=== PATIENT | female | born 1985 | race African-American/Black ===

== ENCOUNTER 2016-08-10 11:45 | Inpatient (IN) | payer OTHER ==
[~2016-08-10 11:45] MED LIST: CITRIC ACID/SODIUM CITRATE 30 ML UNIT-DOSE CUP PO ONE; ELECTROLYTE-148 SOLN 1,000 ML IV SCH
[2016-08-10] MEDS ORDERED: ELECTROLYTE-148 SOLN 1,000 ML IV SCH (12:15)
[2016-08-10] MEDS ORDERED: morphine SULFATE/Preservative Free 0.5 MG/ML (1cc Syringe) EP ONE (12:17)
[2016-08-10] MEDS ORDERED: ONDANSETRON 4 MG/2 ML VIAL IVPB PRN (12:17)
[2016-08-10] MEDS ORDERED: IBUPROFEN 800 MG/8 ML IJ IVPB PRN ×2 (12:18→12:59)
[2016-08-10 12:50] LABS: BASOPHIL 0.4 % (0-2.0); EOSINOPHIL 0.9 % (0-4.5); MCH 26.2 pg (25.7-33.7); MCHC 33.2 g/dl (32.0-36.0); MEAN PLT VOLUME 8.5 fl (7.5-11.1); NEUTROPHILS 84.7 % (42.8-82.8); PLATELET COUNT 235 K/MM3 (134-434); RDW 15.1 % (11.6-15.6); WHITE BLOOD COUNT 13.3 K/mm3 (4.0-10.0)
[2016-08-10] MEDS ORDERED: IBUPROFEN 600 MG TABLET (FP) PO PRN (12:59)
[2016-08-10] MEDS ORDERED: BENZOCAINE 20% 57 GM BOTTLE TP PRN (12:59)
[2016-08-10] MEDS ORDERED: WITCH HAZEL 50% (TUCKS) 40 PAD/JAR PAD TP PRN (12:59)
[2016-08-10] MEDS ORDERED: METHYLERGONOVINE MALEATE 0.2 MG/1 ML AMP IM PRN (12:59)
[2016-08-10] MEDS ORDERED: oxyCODONE HCL 5 MG TABLET PO PRN ×2 (12:59)
[2016-08-10] MEDS ORDERED: diphenhydrAMINE HCL 25 MG CAPSULE (FP) PO PRN (12:59)
[2016-08-10] MEDS ORDERED: BENZOCAINE 28 GM HEMORRHOIDAL OINTMENT PR PRN (12:59)
[2016-08-10] MEDS ORDERED: OXYTOCIN 20 UNITS in 0.9% NS 1,000 ML IV SCH (13:00)
[2016-08-10 13:09] LABS: ARTERIAL BLD GAS O2 SATURATION 33.3 % (90-98.9); ARTERIAL BLOOD GAS BASE EXCESS 0.1 meq/l (-2-2); ARTERIAL BLOOD GAS HCO3 26.9 meq/L (22-26); ARTERIAL BLOOD GAS pH 7.31 (7.35-7.45)
[2016-08-10 13:12] LABS: ARTERIAL BLOOD GAS BASE EXCESS 0.2 meq/l (-2-2); ARTERIAL BLOOD GAS HCO3 24.6 meq/L (22-26); ARTERIAL BLOOD GAS pH 7.39 (7.35-7.45)
[2016-08-10 13:16] LABS: INR 1.01 (0.82-1.09); PROTHROMBIN TIME (PATIENT) 11.1 SEC (9.98-11.88)
[2016-08-10 13:16] LABS: LPM/O2% 21%; PT. ON O2? NO; TYPE OF O2 ROOM AIR
[2016-08-10 13:17] LABS: ARTERIAL BLOOD GAS PO2 19.8 mmHg (80-100)
[2016-08-10 13:17] LABS: ARTERIAL BLOOD GAS PO2 40.3 mmHg (80-100); LPM/O2% 21%; PT. ON O2? NO; TYPE OF O2 ROOM AIR
[2016-08-10 13:19] LABS: ACTIVATED PTT 29.8 SECONDS (26.9-34.4)
[2016-08-10 13:48] VITALS: BMI 33.9
[2016-08-10] MEDS: CEFAZOLIN (PRE-DOCKED) 50 ML IVPB SCH (18:17)
[2016-08-10 18:37] LABS: ANION GAP 10 (8-16); CALCIUM 8.5 mg/dL (8.5-10.1); CO2 26 mmol/L (21-32); CREATININE 0.4 mg/dL (0.55-1.02); GLUCOSE,RANDOM 66 mg/dL (74-106)
[2016-08-11] MEDS: CEFAZOLIN (PRE-DOCKED) 50 ML IVPB SCH (01:51)
--- NOTE | 2016-08-11 04:32 | HP ---
Past Medical History - Primary Care Physician PCP:: Momo Nieves - Admission Chief Complaint: 38 weeks, previous c/s, labor, non reassuring fhr History of Present Illness: 08/10/16 31 yo f with one previous c/s c/o of pain since 4 am, no rom , no bleeding, fhr spont decelration, admitted forrepeat c/s for non reassuring hear, cx 1 cm 50 vx -3 mi History Source: Patient Limitations to Obtaining History: No Limitations - Past Medical History Pulmonary: Yes: Asthma ...: 2 ...Para: 1 ...Term: 1 ...: 0 ...Spon : 0 ...Induced : 0 ...Multiple Gestation: 0 ...LMP: 11/20/15 ... Weeks Gestation by Dates: 37.5 ...EDC by Dates: 08/26/16 ...EDC by Sono: 08/25/16 - Past Surgical History Past Surgical History: Yes: None, Appendectomy, Hx Myomectomy: No Hx Transabdominal Cerclage: No - Smoking History Smoking history: Never smoked Have you smoked in the past 12 months: No Aproximately how many cigarettes per day: 0 - Alcohol/Substance Use Hx Alcohol Use: No - Social History Usual Living Arrangement: Yes: With Spouse History of Recent Travel: No Home Medications - Allergies Allergies/Adverse Reactions: Allergies Allergy/AdvReac Type Severity Reaction Status Date / Time pecan nut Allergy Severe Swelling Verified 08/10/16 13:51 walnut Allergy Severe Swelling Verified 08/10/16 13:50 No Known Drug Allergies Allergy Verified 08/10/16 13:50 - Home Medications Home Medications: Ambulatory Orders Pnv95/Ferrous Fumarate/FA [ Vitamin Tablet] 1 each PO DAILY 08/10/16 Physical Exam - Maternity Vital Signs: Vital Signs Temperature 99.0 F 08/11/16 02:00 Pulse Rate 81 08/11/16 02:00 Respiratory Rate 20 08/11/16 02:00 Blood Pressure 113/70 08/11/16 02:00 O2 Sat by Pulse Oximetry (%) 99 08/10/16 14:10 Constitutional: Yes: Well Nourished, No Distress, Calm Eyes: Yes: WNL, Conjunctiva Clear, EOM Intact HENT: Yes: WNL, Atraumatic, Normocephalic Neck: Yes: WNL, Supple, Trachea Midline Cardiovascular: Yes: WNL, Regular Rate and Rhythm Breast(s): Yes: WNL - Abdominal Exam/OB Fundal Height: 40 Number of Fetuses: Single Presentation: Vertex Contractions: Yes Regularity: Irregular Intensity: Strong Monitor Mode: External Heart Rate Location: [facility] Category: II Accelerations: Non-Uniform Decelerations: Prolonged - Vaginal Exam/OB Vaginal Bleediing: No Speculum Exam: No Dilatation (cm): 1 cm Effacement (%): 50 Amniotic Membrane Status: Intact Presentation: Vertex/Position Station: -3 - Physical Exam Musculoskeletal: Yes: WNL Extremities: Yes: WNL Edema: LLE: Trace, RLE: Trace Deep Tendon Reflex Grade: Normal +2 - Labs Lab Results: CBC, BMP 08/10/16 12:25 08/10/16 16:30 Hemorrhage Risk Assessment - Risk Factors Risk Score: 1 Risk Level: Medium Risk Problem List - Problems (1) with 38 completed weeks gestation Code(s): Z3A.38 - 38 WEEKS GESTATION OF (2) Previous delivery affecting , antepartum Code(s): O34.219 - MATERNAL CARE FOR UNSP TYPE SCAR FROM PREVIOUS DEL (3) Non-reassuring heart tones complicating , antepartum Code(s): O36.8990 - MATERNAL CARE FOR OTH PROBLEMS, UNSP TRIMESTER, UNSP Assessment/Plan plan admit for c/s, rba discussed
--- NOTE | 2016-08-11 05:16 | PN ---
Progress Note (short form) - Note Progress Note: pod 1 doing well, has mild cramps CBC, BMP 08/10/16 12:25 08/10/16 16:30 Last Vital Signs Temp Pulse Resp BP Pulse Ox 99.0 F 81 20 113/70 99 08/11/16 02:00 08/11/16 02:00 08/11/16 02:00 08/11/16 02:00 08/10/16 14:10 abdomen soft, no distension, no cva incision dry, no excess vaginal bleeding plan ambualte, cbc, advance diet Problem List - Problems (1) with 38 completed weeks gestation Code(s): Z3A.38 - 38 WEEKS GESTATION OF (2) Previous delivery affecting , antepartum Code(s): O34.219 - MATERNAL CARE FOR UNSP TYPE SCAR FROM PREVIOUS DEL (3) Non-reassuring heart tones complicating , antepartum Code(s): O36.8990 - MATERNAL CARE FOR OTH PROBLEMS, UNSP TRIMESTER, UNSP
[2016-08-11 06:57] LABS: BASOPHIL 0.5 % (0-2.0); EOSINOPHIL 2.4 % (0-4.5); MCH 26.2 pg (25.7-33.7); MCHC 33.4 g/dl (32.0-36.0); MEAN CELL VOLUME 78.6 fl (80-96); MEAN PLT VOLUME 8.3 fl (7.5-11.1); NEUTROPHILS 82.6 % (42.8-82.8); PLATELET COUNT 218 K/MM3 (134-434); RDW 15.1 % (11.6-15.6); WHITE BLOOD COUNT 12.1 K/mm3 (4.0-10.0)
[2016-08-11] MEDS: ENOXAPARIN NA (PORCINE) 40 MG/0.4 ML DISP.SYRIN SQ SCH (09:55)
--- NOTE | 2016-08-11 11:28 | PN ---
Progress Note (short form) - Note Progress Note: Anesthesia post op note: POD#1. S/P C/S, in spinal with duramorph. Pat seen and examined. VSS. Ambulating, pain controlled. No apparent post anesthesia complications.Signed off.
[2016-08-11] MEDS: SIMETHICONE 80 MG TAB.CHEW (FP) PO PRN ×2 (12:33→20:44)
[2016-08-11] MEDS: ACETAMINOPHEN 325 MG TABLET (FP) PO PRN ×2 (12:33→20:44)
[2016-08-11] MEDS: IBUPROFEN 600 MG TABLET (FP) PO PRN ×2 (12:34→20:45)
[2016-08-11] MEDS ORDERED: BISACODYL 10 MG SUPP.RECT RC PRN (13:00)
[2016-08-12] MEDS: SIMETHICONE 80 MG TAB.CHEW (FP) PO PRN ×4 (02:10→20:52)
[2016-08-12] MEDS: ACETAMINOPHEN 325 MG TABLET (FP) PO PRN ×4 (02:10→20:52)
[2016-08-12] MEDS: IBUPROFEN 600 MG TABLET (FP) PO PRN ×4 (02:11→20:52)
--- NOTE | 2016-08-12 07:48 | PN ---
Post Progress Note - Subjective Subjective: 31 yo Para 2, status post repeat , seen and evaluated. Doing well. Post Day: 2 Type of Delivery: Repeat C/S Vital Signs: Vital Signs Temperature 98.9 F 08/11/16 22:00 Pulse Rate 71 08/11/16 22:00 Respiratory Rate 20 08/11/16 22:00 Blood Pressure 119/99 08/11/16 22:00 O2 Sat by Pulse Oximetry (%) 99 08/10/16 14:10 Breast Exam: Yes: Soft Uterus: Yes: Fundus Firm Incision: Yes: Dressing dry and intact Abdomen/GI: Yes: Abdomen soft, Tolerating PO Lochia: Yes: Rubra Lochia, amount: Small Extremities: Yes: Calves non-tender Perineum: Yes: Intact Activity: Ambulating - Labs Labs: CBC WBC 12.1 K/mm3 (4.0-10.0) H 08/11/16 06:20 RBC 4.35 M/mm3 (3.60-5.2) 08/11/16 06:20 Hgb 11.4 GM/dL (10.7-15.3) 08/11/16 06:20 Hct 34.2 % (32.4-45.2) 08/11/16 06:20 MCV 78.6 fl (80-96) L 08/11/16 06:20 MCHC 33.4 g/dl (32.0-36.0) 08/11/16 06:20 RDW 15.1 % (11.6-15.6) 08/11/16 06:20 Plt Count 218 K/MM3 (134-434) 08/11/16 06:20 MPV 8.3 fl (7.5-11.1) 08/11/16 06:20 Neutrophils % 82.6 % (42.8-82.8) 08/11/16 06:20 Lymphocytes % 8.5 % (8-40) D 08/11/16 06:20 Monocytes % 6.0 % (3.8-10.2) D 08/11/16 06:20 Eosinophils % 2.4 % (0-4.5) D 08/11/16 06:20 Basophils % 0.5 % (0-2.0) 08/11/16 06:20 Problem List - Problems (1) Status post repeat low transverse section Code(s): Z98.891 - HISTORY OF UTERINE SCAR FROM PREVIOUS SURGERY Assessment/Plan Status post repeat Stable Continue routine Post op care
--- NOTE | 2016-08-12 07:50 | DS ---
Physical Exam-SENIOR ADMINISTRATIVE SUPPORT Vital Signs: Vital Signs Temperature 98.9 F 08/11/16 22:00 Pulse Rate 71 08/11/16 22:00 Respiratory Rate 20 08/11/16 22:00 Blood Pressure 119/99 08/11/16 22:00 O2 Sat by Pulse Oximetry (%) 99 08/10/16 14:10 Constitutional: Yes: Well Nourished Eyes: Yes: Conjunctiva Clear HENT: Yes: Atraumatic Neck: Yes: Supple, Trachea Midline Cardiovascular: Yes: Regular Rate and Rhythm Respiratory: Yes: Regular, CTA Bilaterally Gastrointestinal: Yes: Normal Bowel Sounds External Genitalia: Yes: Normal Vaginal Exam: Yes: Normal Cervix: Yes: Normal Breast(s): Yes: WNL Wound/Incision: Yes: Clean/Dry, Melissa Intact Neurological: Yes: Alert, Oriented ...Motor Strength: WNL Psychiatric: Yes: Alert, Oriented Labs: CBC, BMP 08/11/16 06:20 08/10/16 16:30 Delivery - Delivery Type of Anesthesia: Spinal Episiotomy/Laceration: None EBL (cc): 500 Delivery, Single - Stages of Labor Date 1st Stage Initiatied: 08/10/16 Time 1st Stage Initiated: 04:30 Date of Delivery: 08/10/16 Time of Delivery: 12:37 Time Placenta Delivered: 12:38 - Condition of Infant Cellular Tower Climber/Doctor Of Nursing Practice Present: Yes Name: Fredy Dhillon Infant Gender: Male Weight: 7 lb 3 oz Position: Right, OT Total Hours ROM (Hrs/Mins): 2MIN - 1 Minute Total Score: 9 5 Minutes Total Score: 9 - [place] Feeding Plan Initial Plan: Elected not to breastfeed exclusively throughout hospitalization Discharge Summary Reason For Visit: LABOR Current Active Problems Non-reassuring heart tones complicating , antepartum (Acute) with 38 completed weeks gestation (Acute) Previous delivery affecting , antepartum (Acute) Status post repeat low transverse section (Acute) Procedures: Principal: Repeat Low transverse Hospital Course: Routine Post op care - Instructions Diet, Activity, Other Instructions: Wound care No driving, no lifting x 4 weeks F/U in clinic for melissa removal in one week Disposition: HOME - Home Medications Comprehensive Discharge Medication List: Ambulatory Orders Pnv95/Ferrous Fumarate/FA [ Vitamin Tablet] 1 each PO DAILY 06/15/17
--- NOTE | 2016-08-12 09:20 | PN ---
Post Progress Note - Subjective Subjective: Patient without acute complaints. Reports tolerating oral intake without nausea or vomiting. Ambulating without dizziness. Denies fevers or chills. Pain well controlled with oral pain medication. without difficulty. Passing flatus. Post Day: 2 Type of Delivery: Repeat C/S Vital Signs: Vital Signs Temperature 98.4 F 08/12/16 08:09 Pulse Rate 74 08/12/16 08:09 Respiratory Rate 20 08/12/16 08:09 Blood Pressure 119/68 08/12/16 08:09 O2 Sat by Pulse Oximetry (%) 99 08/10/16 14:10 Uterus: Yes: Fundus Firm, Fundus below umbilicus Incision: Yes: Sutures intact Abdomen/GI: Yes: Abdomen soft, Tender (mild incisional), Passing flatus, Tolerating PO Lochia: Yes: Serosa Lochia, amount: Small Extremities: Yes: Calves non-tender, Edema (trace) Activity: Ambulating - Labs Labs: CBC WBC 12.1 K/mm3 (4.0-10.0) H 08/11/16 06:20 RBC 4.35 M/mm3 (3.60-5.2) 08/11/16 06:20 Hgb 11.4 GM/dL (10.7-15.3) 08/11/16 06:20 Hct 34.2 % (32.4-45.2) 08/11/16 06:20 MCV 78.6 fl (80-96) L 08/11/16 06:20 MCHC 33.4 g/dl (32.0-36.0) 08/11/16 06:20 RDW 15.1 % (11.6-15.6) 08/11/16 06:20 Plt Count 218 K/MM3 (134-434) 08/11/16 06:20 MPV 8.3 fl (7.5-11.1) 08/11/16 06:20 Neutrophils % 82.6 % (42.8-82.8) 08/11/16 06:20 Lymphocytes % 8.5 % (8-40) D 08/11/16 06:20 Monocytes % 6.0 % (3.8-10.2) D 08/11/16 06:20 Eosinophils % 2.4 % (0-4.5) D 08/11/16 06:20 Basophils % 0.5 % (0-2.0) 08/11/16 06:20 Assessment/Plan 31 yo POD #2 s/p CD, afebrile, vital signs stable, doing well 1. Continue routine postoperative care. 2. Encourage ambulation and incentive spirometer use 3. Continue oral pain medication 4. Patient states desires circumcision for infant. Discussed risks including infection, bleeding, damage to tip of penis, and unsatisfactory result, resulting in surgical repair or repeat circumcision. Patient expressed understanding and consents to procedure. Reviewed infants chart, normal genitalia per case checker, Dr. Ceja 5. Anticipate discharge home postoperative day #3 or #4
[2016-08-12] MEDS: ENOXAPARIN NA (PORCINE) 40 MG/0.4 ML DISP.SYRIN SQ SCH (10:14)
[2016-08-12] MEDS: DEXTROSE 5%-LACTATED RINGERS 1,000 ML IV SCH ×2 (19:35→19:36)
[2016-08-12] MEDS ORDERED: SENNOSIDES/DOCUSATE COMBO (SENNA PLUS) TABLET (UD) PO PRN (22:00)
[2016-08-13] MEDS: IBUPROFEN 600 MG TABLET (FP) PO PRN ×5 (01:26→22:14)
[2016-08-13] MEDS: ACETAMINOPHEN 325 MG TABLET (FP) PO PRN ×5 (01:26→22:13)
[2016-08-13] MEDS: SIMETHICONE 80 MG TAB.CHEW (FP) PO PRN ×5 (01:26→22:13)
--- NOTE | 2016-08-13 08:27 | PN ---
Post Progress Note - Subjective Subjective: Patient without acute complaints. Reports tolerating oral intake without nausea or vomiting. Ambulating without dizziness. Denies fevers or chills. Pain well controlled with oral pain medication. Breast and bottlefeeding without difficulty. Passing flatus. Post Day: 3 Type of Delivery: Repeat C/S Vital Signs: Vital Signs Temperature 98.3 F 08/12/16 22:00 Pulse Rate 74 08/12/16 22:00 Respiratory Rate 18 08/12/16 22:00 Blood Pressure 130/77 08/12/16 22:00 O2 Sat by Pulse Oximetry (%) 99 08/10/16 14:10 Breast Exam: Yes: Soft Uterus: Yes: Fundus Firm, Fundus below umbilicus Incision: Yes: Sutures intact. No: Redness, Oozing Abdomen/GI: Yes: Abdomen soft, Tender (incisional), Passing flatus, Tolerating PO. No: Abdominal Distention Lochia: Yes: Serosa Lochia, amount: Small Extremities: Yes: Calves non-tender, Edema (trace) Activity: Ambulating - Labs Labs: CBC WBC 12.1 K/mm3 (4.0-10.0) H 08/11/16 06:20 RBC 4.35 M/mm3 (3.60-5.2) 08/11/16 06:20 Hgb 11.4 GM/dL (10.7-15.3) 08/11/16 06:20 Hct 34.2 % (32.4-45.2) 08/11/16 06:20 MCV 78.6 fl (80-96) L 08/11/16 06:20 MCHC 33.4 g/dl (32.0-36.0) 08/11/16 06:20 RDW 15.1 % (11.6-15.6) 08/11/16 06:20 Plt Count 218 K/MM3 (134-434) 08/11/16 06:20 MPV 8.3 fl (7.5-11.1) 08/11/16 06:20 Neutrophils % 82.6 % (42.8-82.8) 08/11/16 06:20 Lymphocytes % 8.5 % (8-40) D 08/11/16 06:20 Monocytes % 6.0 % (3.8-10.2) D 08/11/16 06:20 Eosinophils % 2.4 % (0-4.5) D 08/11/16 06:20 Basophils % 0.5 % (0-2.0) 08/11/16 06:20 Assessment/Plan 31 yo POD #3 s/p CD, afebrile, vital signs stable, doing well 1. Continue routine postoperative care. 2. Encourage ambulation and incentive spirometer use 3. Continue oral pain medication 4. Patient states desires circumcision for . Discussed risks including infection, bleeding, damage to tip of penis, and unsatisfactory result, resulting in surgical repair or repeat circumcision. Patient expressed understanding and consents to procedure. Written consent obtained. Reviewed infants chart, normal genitalia per box sealing machine operator, Dr. Ceja 5. Patient desires discharge home POD #4
[2016-08-13 08:35] LABS: BASOPHIL 0.4 % (0-2.0); EOSINOPHIL 5.1 % (0-4.5); MCH 26.8 pg (25.7-33.7); MEAN CELL VOLUME 78.7 fl (80-96); MEAN PLT VOLUME 8.3 fl (7.5-11.1); NEUTROPHILS 75.7 % (42.8-82.8); PLATELET COUNT 218 K/MM3 (134-434); RDW 15.1 % (11.6-15.6); WHITE BLOOD COUNT 11.9 K/mm3 (4.0-10.0)
[2016-08-13] MEDS: ENOXAPARIN NA (PORCINE) 40 MG/0.4 ML DISP.SYRIN SQ SCH (09:52)
[2016-08-14] MEDS: IBUPROFEN 600 MG TABLET (FP) PO PRN ×3 (02:52→14:23)
[2016-08-14] MEDS: ACETAMINOPHEN 325 MG TABLET (FP) PO PRN ×3 (02:52→14:21)
[2016-08-14] MEDS: SIMETHICONE 80 MG TAB.CHEW (FP) PO PRN ×3 (02:55→14:20)
--- NOTE | 2016-08-14 09:33 | PN ---
Post Progress Note - Subjective Subjective: Patient without acute complaints. Reports tolerating oral intake without nausea or vomiting. Ambulating without dizziness. Denies fevers or chills. Pain well controlled with oral pain medication. without difficulty. Passing flatus. Post Day: 4 Type of Delivery: Repeat C/S Vital Signs: Vital Signs Temperature 98.0 F 08/13/16 21:34 Pulse Rate 67 08/13/16 21:34 Respiratory Rate 18 08/13/16 21:34 Blood Pressure 134/79 08/13/16 21:34 O2 Sat by Pulse Oximetry (%) 99 08/10/16 14:10 Breast Exam: Yes: Engorged Uterus: Yes: Fundus Firm, Fundus below umbilicus Incision: Yes: Sutures intact. No: Redness, Oozing Abdomen/GI: Yes: Abdomen soft, Tender (incisional ), Passing flatus, Tolerating PO Lochia: Yes: Serosa Lochia, amount: Small Extremities: Yes: Calves non-tender, Edema (trace) Activity: Ambulating - Labs Labs: CBC WBC 11.9 K/mm3 (4.0-10.0) H 08/13/16 07:25 RBC 4.29 M/mm3 (3.60-5.2) 08/13/16 07:25 Hgb 11.5 GM/dL (10.7-15.3) 08/13/16 07:25 Hct 33.7 % (32.4-45.2) 08/13/16 07:25 MCV 78.7 fl (80-96) L 08/13/16 07:25 MCHC 34.0 g/dl (32.0-36.0) 08/13/16 07:25 RDW 15.1 % (11.6-15.6) 08/13/16 07:25 Plt Count 218 K/MM3 (134-434) 08/13/16 07:25 MPV 8.3 fl (7.5-11.1) 08/13/16 07:25 Neutrophils % 75.7 % (42.8-82.8) 08/13/16 07:25 Lymphocytes % 14.7 % (8-40) D 08/13/16 07:25 Monocytes % 4.1 % (3.8-10.2) 06/18/17 07:25 Eosinophils % 5.1 % (0-4.5) H D 08/13/16 07:25 Basophils % 0.4 % (0-2.0) 08/13/16 07:25 Assessment/Plan 31 yo POD #4 s/p CD, afebrile, vital signs stable, doing well 1. Patient stable for discharge home today. 2. Patient encouraged to contact MD for: - Severe pain not controlled by oral pain medication - Fevers or chills - Nausea or vomiting, intolerance of oral intake - Incision redness, tenderness or discharge 3. Patient to follow up in office in 1-2 weeks for incision check, 4-6 weeks for visit
--- NOTE | 2016-08-14 09:47 | DS ---
Physical Exam-DISPOSAL WORKER Vital Signs: Vital Signs Temperature 98.0 F 08/13/16 21:34 Pulse Rate 67 08/13/16 21:34 Respiratory Rate 18 08/13/16 21:34 Blood Pressure 134/79 08/13/16 21:34 O2 Sat by Pulse Oximetry (%) 99 08/10/16 14:10 Labs: CBC, BMP 08/13/16 07:25 08/10/16 16:30 Delivery - Delivery Type of Anesthesia: Spinal Episiotomy/Laceration: None EBL (cc): 500 Delivery, Single - Stages of Labor Date 1st Stage Initiatied: 08/10/16 Time 1st Stage Initiated: 04:30 Date of Delivery: 08/10/16 Time of Delivery: 12:37 Time Placenta Delivered: 12:38 - Condition of Cartridge Assembler/Winder Operator Present: Yes Name: Fredy Dhillon Gender: Male Weight: 7 lb 3 oz Position: Right, OT Total Hours ROM (Hrs/Mins): 2MIN - 1 Minute Total Score: 9 5 Minutes Total Score: 9 - [place] Feeding Plan Initial Plan: Elected not to breastfeed exclusively throughout hospitalization Discharge Summary Reason For Visit: LABOR Current Active Problems Non-reassuring heart tones complicating , antepartum (Acute) with 38 completed weeks gestation (Acute) Previous delivery affecting , antepartum (Acute) Status post repeat low transverse section (Acute) Procedures: Principal: delivery Hospital Course: patient remained afebrile, vital signs stable, doing well for discharge home POD #4 [facility] Reference #: [id number] Condition: Good - Instructions Diet, Activity, Other Instructions: Physical activity Resume your normal everyday activity as tolerated no heavy lifting or exercise until seen by your surgeon. You may walk unlimited jerardo of and climb stairs. You may resume driving the car when you feel safe and comfortable behind the wheel. No sexual activity as instructed. Wound care If you have a bandage, leave it on, and keep dry for 48-72 hours. After that time discard the outer bandage. If they are tapes on the skin under the out of bandage leave them in place. They will peel off in the next 7 to 10 days. Do Not Peel them off. You may shower the day after surgery. If there are tapes present on the skin, you may shower over them. Diet There are no dietary restrictions. Eat healthy, high-fiber foods. Drink 6 to 8 glasses of liquid each day. This will assist in keeping your bowels are regular. Pain management You may take Tylenol or acetaminophen or Ibuprofen (for example, Motrin, Advil etc.) from my pain prescription medication is ordered should be taken as prescribed for moderate to severe pain. Call MD for any of the following: Severe pain not relieved by medication Fever of 101 or higher Excessive bleeding or drainage on dressing Inability to urinate Referrals: Momo Nieves MD [Staff Physician] - Disposition: HOME - Home Medications Comprehensive Discharge Medication List: Ambulatory Orders Pnv95/Ferrous Fumarate/FA [ Vitamin Tablet] 1 each PO DAILY 08/10/16 Ibuprofen [Motrin -] 600 mg PO QID #60 tablet 08/14/16 Oxycodone HCl/Acetaminophen [Percocet 5-325 mg Tablet -] 1 - 2 tab PO Q6H #20 tab MDD 6 08/14/16
[2016-08-14] MEDS: ENOXAPARIN NA (PORCINE) 40 MG/0.4 ML DISP.SYRIN SQ SCH (10:20)
[2016-08-14 10:21] VITALS: BP 116/68; PULSE 64; TEMP 98.6
--- NOTE | 2016-08-15 14:44 | PATH ---
Surgical Pathology Report Patient Name: THOMPSON JIMENEZ [facility]. Rec. #: [id number] /Age/Gender: 1985 (Age: 31) / F Account: [id number] Location: [facility] OBS/OBSTETRICAL ANESTHESIOLOGIST Taken: 08/10/2016 Received: 08/11/2016 Reported: 08/15/2016 Physicians: Momo Nieves M.D. Specimen(s) Received PLACENTA Clinical History , 37.6 weeks, previous with nonreassuring heart rate Sickle cell trait, father of baby negative Right dermoid cyst, migraines Final Diagnosis PLACENTA, DELIVERY: SMALL (396 GRAM) THIRD TRIMESTER PLACENTA WITH 3 VESSEL UMBILICAL CORD AND UNREMARKABLE PLACENTAL MEMBRANES. Electronically Signed Chon Beckford M.D. Gross Description The specimen is received fresh labeled placenta and is a 396 gram, 14.2 x 13.5 x 3.3 cm. placenta with attached membranes and umbilical cord. The attached membranes are olvera, translucent with focal past opacities and insert marginally. The umbilical cord measures 19 cm. in length and averages 1 cm. in diameter. The cord inserts eccentrically, 3.5 cm. to the nearest margin. No true knots or strictures are identified. Cut surface of the umbilical cord reveals 3 vessels. The surface is benítez-blue with minimal fibrin deposition and appropriate caliber vessels. The maternal surface is red-brown and intact. Sectioning reveals red-brown, spongy parenchyma. No lesions are identified. Industrial Health Engineer sections are submitted in three cassettes as follows: 1- membrane rolls and umbilical cord; 2-3- full thickness sections of placenta. [facility]
--- NOTE | 2016-09-16 07:46 | OP ---
DATE OF OPERATION: 08/11/2016 PREOPERATIVE DIAGNOSIS: at 38 weeks, previous section, labor, nonreassuring heart rate. POSTOPERATIVE DIAGNOSIS: at 38 weeks, previous section, labor, nonreassuring heart rate. PROCEDURE: Repeat low-segment transverse section. SURGEON: Antionette Nieves MD ANESTHESIA: Spinal. ESTIMATED BLOOD LOSS: 500 mL DESCRIPTION OF OPERATION: Patient was taken to the operating room. Under adequate spinal anesthesia, abdomen and perineum were prepped and draped. Pfannenstiel abdominal skin incision was made over the previous incision. Abdominal wall was cut layer by layer until peritoneum was exposed and incised. Upon entering the abdominal cavity, lower uterine segment was identified and uterovesical fold of peritoneum established. Bladder was pushed down. Then, with the lower blade of the Kong retractor in the pelvis, a low transverse incision was made. Incision extended laterally. Amniotic sac was entered. Head delivered. Nasopharynx was suctioned and live baby delivered without any difficulty. Placenta was delivered manually. Uterine cavity was cleaned out of tissue. Then, uterine incision was closed in 2 layers, first layer with 0 Biosyn continuous suture, the second layer with 0 Biosyn imbricating the first layer. Bladder flap was closed with 0 Biosyn continuous suture. Both tubes and ovaries were checked, were normal. Then, peritoneum was closed with 0 Biosyn continuous suture. Muscles were brought together with interrupted sutures of 0 Biosyn. Fascia was closed with 0 Biosyn continuous suture, subcutaneous fat with interrupted suture of 0 Biosyn, and the skin was closed with melissa. Patient tolerated the procedure well, left the OR in good condition. ANTIONETTE NIEVES M.D. [id number]
== END 2016-08-14 15:55 | disposition home or self-care (01) | DRG 766 ==
LOC: JLDR 11:45 → J3W 15:44
PROVIDERS: ADMIT Obstetrics & Gynecology; ATTEND Obstetrics & Gynecology
PROC: 10D00Z1 Extraction of Products of Conception, Low, Open Approach (ICD-10-PCS; principal; 2016-08-10)
DX: O76 Abnormality in fetal heart rate and rhythm complicating labor and delivery (principal); O34.211 Maternal care for low transverse scar from previous cesarean delivery; Z3A.38 38 weeks gestation of pregnancy; Z37.0 Single live birth
CPT/HCPCS: 36415; 36600; 80048; 82803; 85025; 85610; 85730; 86593; 86850; 86900; 86901; 88307-TC

== ENCOUNTER 2017-09-05 10:03 | Day surgery (SDC) | payer OTHER ==
--- NOTE | 2017-08-13 12:27 | HP ---
DATE OF ADMISSION: 09/05/2017 DATE OF DICTATION: 08/07/2017 A patient having surgery at [facility] in the near future, date to be determined. HISTORY: This is a 32-year-old woman who had initially developed discomfort and a small bulge involving the central ring of her abdomen after her first delivery via in 2014. Patient went on to have a second which she delivered a year ago, again through section. Since that time, however, she has developed a rather progressive enlargement of the bulge at the level of the anterior abdominal wall, which has become quite symptomatic. Patient has underlying chronic constipation since being young, which may have also contributed to her problem. There is no history of or respiratory issues to suggest further predisposition to hernia formation. The patient did have a laparoscopic appendectomy performed in 2011, which may also be an underlying contributing factor. Patient has no significant past medical history apart from GERD. No history of heart disease, hypertension, diabetes, respiratory, renal, or hepatic insufficiency. PAST SURGICAL HISTORY: Significant for laparoscopic appendectomy in 2011, as well as sections in 2014 and 2016. ALLERGIES: No known medication allergies. MEDICATIONS: No regular medications. SOCIAL HISTORY: Negative tobacco. Negative alcohol. FAMILY HISTORY: Nil. REVIEW OF SYSTEMS: Nil. PHYSICAL EXAMINATION: Abdomen: Moderately obese, soft, and nontender. Obvious protrusion involving the central ring of the abdomen extending off to the right of the midline and inferiorly. On palpation, the patient has a chronically incarcerated ventral hernia which is irreducible. IMPRESSION: Chronically incarcerated, complex ventral hernia. PLAN: After a lengthy discussion with the patient, I have opted to move in the direction of an open, bilateral component-separation reduction and repair of chronically incarcerated, complex ventral hernia with mesh. Indications, alternatives, possible complications associated with the procedure, including all of the issues associated with use of synthetic mesh, have been reviewed at length. Consent obtained. The patient to be seen preoperatively by Dr. Lizzeth Grider of the medical service. Please refer to her notes for those medical details. YOGI MURCIA M.D. [place]/[id number] cc: Tisha Grider MD
[2017-08-31 09:30] VITALS: BMI 28.8
[2017-09-05] MEDS ORDERED: BUPIVACAINE HCL/PF 2.5 MG/ML - 30 ML VIAL IJ ONE (12:08)
[2017-09-05] MEDS ORDERED: DEXAMETHASONE SOD PHOSPHATE 4 MG/1 ML VIAL ONE ×2 (12:08→12:43)
[2017-09-05] MEDS ORDERED: fentaNYL CITRATE 250 MCG/5 ML VIAL ONE (12:15)
[2017-09-05] MEDS ORDERED: PROPOFOL 20 ML ONE ×3 (12:16→13:19)
[2017-09-05] MEDS ORDERED: ROCURONIUM BROMIDE 50 MG/5 ML VIAL ONE (12:16)
[2017-09-05] MEDS ORDERED: MIDAZOLAM HCL 2 MG/2 ML SINGLE DOSE VIAL ONE (12:16)
[2017-09-05] MEDS ORDERED: LIDOCAINE HCL/PF 2% SDV 5ML VIAL ONE (12:43)
[2017-09-05] MEDS ORDERED: ONDANSETRON 4 MG/2 ML VIAL ONE (12:43)
[2017-09-05] MEDS ORDERED: ceFAZolin SODIUM 1 GM VIAL ONE (12:43)
[2017-09-05] MEDS ORDERED: NEOSTIGMINE METHYLSULFATE 0.5 MG/ML - 10 ML MDV ONE (13:32)
[2017-09-05] MEDS ORDERED: ONDANSETRON 4 MG/2 ML VIAL IVPUSH PRN ×2 (14:01→14:36)
[2017-09-05] MEDS ORDERED: PROMETHAZINE HCL 25 MG/1 ML VIAL IVPUSH PRN (14:01)
[2017-09-05] MEDS ORDERED: KETOROLAC TROMETHAMINE 30 MG/1 ML VIAL ONE (14:21)
[2017-09-05] MEDS ORDERED: ACETAMINOPHEN INJECTION 100 ML IVPB ONE (14:25)
[2017-09-05] MEDS ORDERED: ACETAMINOPHEN 1000 MG/100 ML VIAL (NON FORMULARY) IVPB ONE ×2 (14:26→15:00)
[2017-09-05] MEDS ORDERED: KETOROLAC TROMETHAMINE 15 MG/ML VIAL IVPUSH PRN (14:30)
[2017-09-05] MEDS ORDERED: morphine SULFATE 4 MG/ML VIAL IVPB PRN (14:34)
[2017-09-05] MEDS ORDERED: oxyCODONE HCL 5 MG TABLET PO PRN (14:37)
[2017-09-05] MEDS ORDERED: ALBUTEROL SO4 8 GM HFA INHALER IH PRN (14:41)
[2017-09-05] MEDS ORDERED: D5-1/2NS+20 MEQ KCL - 20 MEQ/1,000 ML INFUS.BAG IV SCH (14:45)
[2017-09-05] MEDS: FAMOTIDINE 20 MG TABLET PO SCH (21:30)
[2017-09-06] MEDS: ACETAMINOPHEN 325 MG TABLET (FP) PO PRN ×2 (05:53→09:10)
[2017-09-06 06:17] VITALS: BP 118/65; PULSE 58; TEMP 97.9
[2017-09-06] MEDS ORDERED: PT OWN MED DRAWER 7, Y5N ONE (06:52)
[2017-09-06] MEDS: FAMOTIDINE 20 MG TABLET PO SCH (09:11)
--- NOTE | 2017-09-06 09:20 | OP ---
DATE OF OPERATION: 09/05/2017 PREOPERATIVE DIAGNOSIS: Incarcerated ventral hernia. POSTOPERATIVE DIAGNOSIS: Incarcerated ventral hernia. PROCEDURE: Open repair of chronic incarcerated ventral hernia with mesh/partial omentectomy. OPERATING SURGEON: Andrew Bay M.D. MANAGER OCCUPATIONAL: Arnie Alfaro D.O. ANESTHESIA: Deon Hope M.D. (General) HISTORY: A 33-year-old woman who presents for repair of a symptomatic, chronically incarcerated ventral hernia. Indications, terms, and possible complications were reviewed. Consent obtained. PROCEDURE: With the patient in the supine position, and after general anesthesia, the abdomen was prepped and draped in the sterile fashion using chlorhexidine. A midline incision was made beginning a couple of centimeters above the umbilicus and extending a couple of centimeters below the umbilicus, directly over the hernia itself, which was off to the right of midline. The incision was deepened into the subcutaneous space. In the subcutaneous space, an obvious hernia sac was easily encountered. The sac was cleaned to the level of the fascial ring. The sac was opened and found to contain a portion of omentum. Partial omentum and a portion of the hernia sac were resected. The peritoneum was then closed using a continuous 3-0 Maxon. The preperitoneal space was then developed in all directions using sharp dissection, creating enough space for placement of an underlying mesh. Ultimately, an 8 cm Bard Ventralex hernia disc was selected for the repair. It was placed in the preperitoneal/retrorectus space. It was pulled up against the undersurface of the abdominal wall musculature where it was tacked and placed circumferentially with an AbsorbaTack counter palpation. The wound was irrigated. The irrigant was retrieved. Adequate hemostasis was ensured. The fascia was then closed in a transverse form using interrupted 0 PDS sutures. The wound was irrigated once again and adequate hemostasis was ensured. Cecilio-Louie drain was placed in the subcutaneous space and exited through a separate stab wound about the right anterior lower abdominal where it was tacked to the skin with 3-0 nylon suture material. The wound was then closed in layers. The deeper subcutaneous tissues were approximated sharply with 3-0 chromic sutures. Subcuticular layer was approximated with interrupted 4-0 Biosyn sutures. Skin was approximated with metallic clips. Dermabond applied. COUNTS: Instrument and sponge counts are correct. ESTIMATED BLOOD LOSS: Minimal. SPECIMEN: Portion of omentum and hernia sac. DRAINS: One ALICIA. IMPLANT: Bard Ventralex hernia disc (8 cm diameter). CONDITION: Patient tolerated the procedure well and was transferred to recovery. Madie [id number] MTDD
[2017-09-06] MEDS ORDERED: ENOXAPARIN NA (PORCINE) 40 MG/0.4 ML DISP.SYRIN SQ SCH (10:00)
--- NOTE | 2017-09-07 17:55 | PATH ---
Surgical Pathology Report Patient Name: THOMPSON JIMENEZ [facility]. Rec. #: [id number] /Age/Gender: 1985 (Age: 32) / F Account: [id number] Location: [facility] Taken: 09/05/2017 Received: 09/05/2017 Reported: 09/07/2017 Physicians: Andrew Bay M.D. Specimen(s) Received HERNIA SAC AND PORTION OF OMENTUM Clinical History Incarcerated ventral hernia Final Diagnosis HERNIA SAC AND PORTION OF OMENTUM, OPEN REPAIR OF COMPLEX VENTRAL HERNIA WITH MESH: MESOTHELIAL LINED ADIPOSE TISSUE AND OMENTUM CONSISTENT WITH HERNIA SAC AND CONTENTS. Electronically Signed Onelia Sloan M.D. Gross Description Received in formalin labeled "hernia sac and portion of omentum," is a 4.2 x 4.0 x 2.3 cm saccular portion of olvera-brown fibromembranous tissue with attached fat. Sectioning reveals adipose tissue within the hernia sac. A union contract representative section is submitted in one cassette. /09/06/2017 [facility]
== END 2017-09-06 12:55 | disposition home or self-care (01) ==
LOC: FASU 10:03 → FM/S 15:55 → FASU 09-06 12:55
PROVIDERS: ATTEND Surgery
PROC: 0DBU0ZZ Excision of Omentum, Open Approach (ICD-10-PCS; 2017-09-05)
PROC: 0WUF0JZ Supplement Abdominal Wall with Synthetic Substitute, Open Approach (ICD-10-PCS; principal; 2017-09-05 12:37)
DX: K43.6 Other and unspecified ventral hernia with obstruction, without gangrene (principal)
CPT/HCPCS: 84703; 88302-TC; J0131

== ENCOUNTER 2023-05-07 08:25 | Inpatient (IN) | payer OTHER ==
[2023-05-07] MEDS: ELECTROLYTE-148 SOLN 1,000 ML IV SCH (10:15)
[2023-05-07 11:01] VITALS: BMI 36.4
[2023-05-07] MEDS: CITRIC ACID/SODIUM CITRATE 30 ML UNIT-DOSE CUP PO ONE (12:42)
[2023-05-07] MEDS ORDERED: LIGASURE IMPACT TP ONE (12:50)
[2023-05-07] MEDS ORDERED: morphine SULFATE/PF 1 MG/2 ML (2cc Syringe - QUVA) ONE (13:32)
[2023-05-07] MEDS ORDERED: FENTANYL CITRATE/PF 50 MCG/ML VIAL ONE (13:33)
[2023-05-07] MEDS ORDERED: ceFAZolin SODIUM 1 GM VIAL ONE ×2 (13:48→13:55)
[2023-05-07] MEDS ORDERED: ONDANSETRON 4 MG/2 ML VIAL ONE (13:55)
[2023-05-07] MEDS ORDERED: PHENYLEPHRINE HCL 10 MG/1 ML SINGLE DOSE VIAL ONE (13:55)
[2023-05-07 15:14] LABS: CORD HCO3 25.8 mmHg (20-29); CORD PCO2 60.8 mmHg (30-78); CORD pH 7.246 (7.14-7.44)
[2023-05-07 15:16] LABS: CORD HCO3 25.6 mmHg (20-29); CORD PCO2 51.1 mmHg (30-78); CORD pH 7.318 (7.14-7.44)
[2023-05-07] MEDS ORDERED: ACETAMINOPHEN INJECTION 100 ML IVPB ONE (16:26)
[2023-05-07] MEDS: ACETAMINOPHEN 1000 MG/100 ML BAG IVPB PRN (16:31)
[2023-05-07] MEDS ORDERED: OXYTOCIN 20 UNITS in 0.9% NS 20 UNIT/1,000 ML INFUS.BAG IV ONE (16:45)
[2023-05-07] MEDS ORDERED: METHYLERGONOVINE MALEATE 0.2 MG/1 ML AMP IM PRN (18:08)
[2023-05-07] MEDS: OXYTOCIN 20 UNITS in 0.9% NS 20 UNIT/1,000 ML INFUS.BAG IV SCH (18:23)
[2023-05-07] MEDS: IBUPROFEN 800 MG/8 ML IJ IVPB PRN (18:29)
[2023-05-07] MEDS: ONDANSETRON 4 MG/2 ML VIAL IVPB ONE (20:04)
[2023-05-08 07:09] LABS: BASO % 0.3 % (0-2.0); EOS % 1.5 % (0-4.5); HEMATOCRIT 26.4 % (32.4-45.2); LYMPH % 9.3 % (8-40); MCH 25.9 pg (25.7-33.7); MCHC 33.9 g/dl (32.0-36.0); MEAN CELL VOLUME 76.4 fl (80-96); MEAN PLT VOLUME 7.4 fl (7.5-11.1); MONO % 6.5 % (3.8-10.2); NEUT % 82.4 % (42.8-82.8); PLATELET COUNT 229 10^3/uL (134-434); RBC 3.46 M/mm3 (3.60-5.2); RDW 16.4 % (11.6-15.6)
[2023-05-08] MEDS: ACETAMINOPHEN 325 MG TABLET (FP) PO PRN (08:07)
[2023-05-08] MEDS: SIMETHICONE 80 MG TAB.CHEW (FP) PO PRN (09:23)
[2023-05-08] MEDS: oxyCODONE HCL 5 MG TABLET PO PRN (12:19)
[2023-05-08] MEDS: IBUPROFEN 600 MG TABLET (FP) PO PRN ×2 (16:21→20:18)
[2023-05-08] MEDS ORDERED: METOCLOPRAMIDE HCL 10 MG TABLET (FP) PO PRN ×2 (19:38→20:04)
[2023-05-08] MEDS: METOCLOPRAMIDE HCL 10 MG TABLET (FP) PO PRN (20:18)
[2023-05-08] MEDS: BISACODYL 10 MG SUPP.RECT RC PRN (21:21)
[2023-05-09 22:03] VITALS: RESP 18
[2023-05-10 07:44] LABS: BASO % 0.6 % (0-2.0); EOS % 5.4 % (0-4.5); HEMOGLOBIN 7.6 GM/dL (10.7-15.3); LYMPH % 9.9 % (8-40); MCH 26.6 pg (25.7-33.7); MCHC 34.4 g/dl (32.0-36.0); MEAN CELL VOLUME 77.5 fl (80-96); MEAN PLT VOLUME 7.8 fl (7.5-11.1); MONO % 5.3 % (3.8-10.2); NEUT % 78.8 % (42.8-82.8); PLATELET COUNT 212 10^3/uL (134-434); RBC 2.84 M/mm3 (3.60-5.2); RDW 16.5 % (11.6-15.6); WHITE BLOOD COUNT 10.5 K/mm3 (4.0-10.0)
[2023-05-10 09:10] VITALS: BP 124/72; PULSE 85; TEMP 98.2
== END 2023-05-10 12:15 | disposition home or self-care (01) | DRG 540 ==
LOC: JLDR 08:25 → J3W 17:00
PROVIDERS: ADMIT Student in an Organized Health Care Education/Training Program; ATTEND Student in an Organized Health Care Education/Training Program
PROC: 10D00Z1 Extraction of Products of Conception, Low, Open Approach (ICD-10-PCS; principal; 2023-05-07)
PROC: 0UT70ZZ Resection of Bilateral Fallopian Tubes, Open Approach (ICD-10-PCS; 2023-05-07)
DX: O34.219 Maternal care for unspecified type scar from previous cesarean delivery (principal); Z3A.39 39 weeks gestation of pregnancy; Z37.0 Single live birth; Z30.2 Encounter for sterilization
CPT/HCPCS: 36415; 36600; 80053; 81003; 82803; 85025; 85610; 86780; 86850; 86900; 86901; 88302-TC; 88307-TC; J0131

== ENCOUNTER 2023-06-04 14:14 | Emergency (ER) | payer OTHER ==
[2023-06-04 14:22] VITALS: BP 118/80; PULSE 83; RESP 18; TEMP 98.2; BMI 31.8
[2023-06-04] MEDS ORDERED: BACITRACIN 0.9 GM PACKET ONE (18:19)
[2023-06-04] MEDS ORDERED: BACITRACIN ZINC 15 GM TUBE TOPICAL OINTMENT ONE (18:23)
[2023-06-04] MEDS: BACITRACIN/POLYMYXIN B SULFATE 15 GM TUBE TP ONE (18:25)
== END 2023-06-04 18:31 | disposition home or self-care (01) ==
LOC: JER 14:14
DX: T81.31XA Disruption of external operation (surgical) wound, not elsewhere classified, initial encounter (principal); X58.XXXA Exposure to other specified factors, initial encounter
CPT/HCPCS: 99283-25